=== PATIENT | female | born 1995 | race Two or more races ===

== ENCOUNTER 2024-08-04 16:04 | Emergency (ER) | payer OTHER ==
[~2024-08-04] VITALS: Ht 157.5 cm; Wt 45.4 kg
[2024-08-04 16:35] VITALS: BP 90/50; O2SAT 98
[2024-08-04 17:14] LABS: HEMATOCRIT 36.4 % (36.0-45.00); HEMOGLOBIN 12.3 g/dL (12.0-15.00); MEAN CELL VOLUME 90.5 fL (80.00-100.00); MEAN CORPUSCULAR HEMOGLOBIN 30.7 pg (27.00-32.0); MEAN CORPUSCULAR HGB CONC 33.9 g/dl (32.0-36.0); PLATELET COUNT 210 K/uL (150-450); RED BLOOD COUNT 4.02 M/uL (4.00-6.00); RED CELL DISTRIBUTION WIDTH 13.8 % (11.5-14.5)
[2024-08-04 20:09] LABS: URINE APPEARANCE Clear; URINE BILIRRUBIN Negative (NEGATIVE); URINE BLOOD Negative; URINE COLOR Yellow; URINE GLUCOSE Negative (NEGATIVE); URINE KETONE Negative (NEGATIVE); URINE LEUKOCYTE Small; URINE NITRATE Negative; URINE PROTEIN Negative (NEGATIVE); URINE UROBILINOGEN 0.2 E.U./dl
[2024-08-04 20:12] LABS: URINE BACTERIA 2157.8 uL (0.0-1933); URINE EPITHELIAL CELLS 16.9 uL (0.0-38.8); URINE WBC 9.9 uL (0.0-23.2)
[2024-08-04 20:14] LABS: URINE RBC 1.9 uL (0.0-20.8)
[2024-08-04] MEDS ORDERED: MACRODANTIN100 MG PO (20:21)
[2024-08-04] MEDS ORDERED: CEFTRIAXONE SODIUM 1,000 MG VIAL IM ONE (20:30)
== END 2024-08-04 20:35 | disposition home or self-care (01) ==
LOC: ER 16:06
PROVIDERS: General Practice
DX: O23.42 Unspecified infection of urinary tract in pregnancy, second trimester (principal); N39.0 Urinary tract infection, site not specified; Z3A.18 18 weeks gestation of pregnancy

== ENCOUNTER 2024-12-16 14:45 | Inpatient (IN) | payer OTHER ==
[~2024-12-16] VITALS: Ht 157.5 cm; Wt 59.0 kg
[~2024-12-16 14:45] MED LIST: MACRODANTIN100 MG PO
[2024-12-29] VITALS (9 sets, daily range): BP systolic 94–116; BP diastolic 54–69
[2024-12-29] MEDS ORDERED: OXYTOCIN 500 ML IV SCH (08:30)
[2024-12-29] MEDS ORDERED: RINGERS SOLUTION,LACTATED 1,000 ML IV SCH (08:30)
[2024-12-29] MEDS ORDERED: PRENATAL TABLE1 EAC4 PO (08:34)
[2024-12-29 08:58] LABS: URINE APPEARANCE Clear; URINE BILIRRUBIN Negative (NEGATIVE); URINE BLOOD Small; URINE COLOR Yellow; URINE GLUCOSE Negative (NEGATIVE); URINE KETONE Negative (NEGATIVE); URINE LEUKOCYTE Moderate; URINE NITRATE Negative; URINE PROTEIN Negative (NEGATIVE); URINE UROBILINOGEN 0.2 E.U./dl
[2024-12-29 08:59] LABS: BASO % 0.3 % (0.1-1.2); EOS # 0.05 (0.04-0.54); EOS % 0.5 % (0.7-7.0); HEMATOCRIT 38.7 % (34.1-44.9); HEMOGLOBIN 13.2 g/dL (11.2-15.7); LYMPH % 19.1 % (19.3-53.1); MEAN CORPUSCULAR HEMOGLOBIN 30.5 pg (25.6-32.2); MONO # 0.71 (0.24-0.82); MONO % 7.1 % (4.7-12.5); NEUT # 7.23 (1.56-6.13); NEUT % 72.5 % (34.0-71.1); PLATELET COUNT 179 K/uL (163-369); RED BLOOD COUNT 4.33 M/uL (3.93-5.22); RED CELL DISTRIBUTION WIDTH 12.4 % (11.6-14.4)
[2024-12-29 09:00] LABS: URINE BACTERIA 1569.7 uL (0.0-1933); URINE WBC 11.8 uL (0.0-23.2)
[2024-12-29 09:21] LABS: INR < 0.93; PARTIAL THROMBOPLASTIN TIME 29.9 SECONDS (22.0-34.0)
[2024-12-29] MEDS ORDERED: MORPHINE SULFATE 4 MG/ML CARTRIDGE IV ONE (09:30)
[2024-12-29 09:55] LABS: ALBUMIN 2.6 gm/dL (3.4-5.0); BILIRUBIN TOTAL 0.3 mg/dL (0.3-1.2); CALCIUM 8.5 mg/dL (8.5-10.1); CREATININE SERUM 0.57 mg/dL (0.55-1.02); GFR 123.71; GLOBULINA 3.5 G/DL (2.4-3.5); POTASSIUM 3.71 mEq/L (3.5-5.1); TOTAL PROTEIN 6.1 gm/dL (6.4-8.2)
[2024-12-29] MEDS ORDERED: LIDOCAINE HCL 1% 10ML VIAL ONE (14:16)
[2024-12-29] MEDS ORDERED: ERYTHROMYCIN BASE OPHT 1GM EACH TUBE OP ONE ×2 (14:16→17:30)
[2024-12-29] MEDS ORDERED: OXYTOCIN 20 UNITS/1000ML RL PIGGYBAG IV ONE ×2 (14:16→18:00)
[2024-12-29] MEDS ORDERED: CHLORHEXIDINE GLUCONATE 120 ML BOTTLE TOP ONE ×2 (14:16→17:15)
[2024-12-29] MEDS ORDERED: ACETAMINOPHEN 500 MG GEL..CAP PO PRN (17:15)
[2024-12-29] MEDS ORDERED: IBUprofen 800 MG TABLET PO PRN (17:15)
[2024-12-29] MEDS ORDERED: LIDOCAINE HCL 1% 10ML VIAL IJ ONE (17:30)
[2024-12-30] VITALS: BP 90/60
[2024-12-30 01:54] LABS: BASO % 0.2 % (0.1-1.2); EOS # 0.01 (0.04-0.54); HEMATOCRIT 35.8 % (34.1-44.9); HEMOGLOBIN 12.3 g/dL (11.2-15.7); LYMPH # 1.38 (1.18-3.74); LYMPH % 5.9 % (19.3-53.1); MEAN CORPUSCULAR HEMOGLOBIN 30.9 pg (25.6-32.2); MONO # 1.51 (0.24-0.82); MONO % 6.5 % (4.7-12.5); NEUT # 20.29 (1.56-6.13); NEUT % 86.9 % (34.0-71.1); PLATELET COUNT 170 K/uL (163-369); RED BLOOD COUNT 3.98 M/uL (3.93-5.22); RED CELL DISTRIBUTION WIDTH 12.5 % (11.6-14.4)
[2024-12-30 08:16] VITALS: BP 99/60
[2024-12-30] MEDS ORDERED: BENZOCAINE/MENTHOL 90 ML BOTTLE TOP SCH (09:00)
[2024-12-30] MEDS ORDERED: HYDROCORTISONE 2.5% 30 GM TUBE RECTAL SCH (09:00)
[2024-12-30 15:53] VITALS: BP 91/60
[2024-12-31 00:49] VITALS: BP 105/70
[2024-12-31 08:48] VITALS: BP 105/69
== END 2024-12-31 14:09 | disposition home or self-care (01) | DRG 807 ==
LOC: LDR 12-29 08:12 → OB/GYN 12-29 17:41 → LDR 01-02 08:44
PROVIDERS: ADMIT Specialist; ATTEND Specialist
PROC: 10E0XZZ Delivery of Products of Conception, External Approach (ICD-10-PCS; principal; 2024-12-29)
PROC: 0W8NXZZ Division of Female Perineum, External Approach (ICD-10-PCS; 2024-12-29)
PROC: 0HQ9XZZ Repair Perineum Skin, External Approach (ICD-10-PCS; 2024-12-29)
PROC: 4A1HXCZ Monitoring of Products of Conception, Cardiac Rate, External Approach (ICD-10-PCS; 2024-12-29)
DX: O70.0 First degree perineal laceration during delivery (principal); O69.81X0 Labor and delivery complicated by cord around neck, without compression, not applicable or unspecified; Z37.0 Single live birth; Z3A.39 39 weeks gestation of pregnancy